=== PATIENT | male | born 1965 | race Caucasian/White ===

== ENCOUNTER 2025-03-11 20:22 | Inpatient (IN) | payer OTHER, SELFPAY ==
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
[2025-03-11 23:43] VITALS: BMI 36.8
--- NOTE | 2025-03-12 04:57 | PC.ADMIT ---
Howard Malagon is a 59 year old male admitted to [facility] from [facility] on a diagnosis of schizophrenia and presenting with increased AH and SI on 03/11/2025.? Pt signed CV.? Patient reports having recently taken a trip out of state with outpatient peer group. Patient did not have his PRN medications during the course of the trip.? Pt contributes this to experiencing disrupted sleep w/nightmares and increased AH and passive SI, with no intent or plan.? Pt reported to have heard a woman?s voice telling him ?You?re a fool? and ?You?d be better off .? Pt felt unsafe and sought inpatient treatment at [facility]. Pt has a history of prior psychiatric hospitalizations.? Tox screen negative.? During admission pt presents with a relaxed affect and anxious mood.? Pt was pleasant and engaged during admission assessment. No noted preoccupation and denied current AH, denies CAH.? Pt reports intermittent back pain 3-4/10, and ?numbness? to right thigh.? Hx of COPD, reporting last time having smoked was 32 years ago.? No medical interventions required. Pt reports hx of sleep apnea, reports having never used a CPAP/BiPAP.? Pt is well established with providers. Seen by hospitalist.? Safety tool completed treatment plan initiated, oriented to unit.
[2025-03-12 07:40] VITALS: BP 124/79; PULSE 60; RESP 20; TEMP 36.4; O2SAT 98
--- NOTE | 2025-03-12 07:54 | HO.PSYADMNOT ---
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 He has a longstanding history of psychiatric problems going back to his 18, mostly with depression and anxiety accompanied by psychotic symptoms with auditory hallucinations, sometimes command in nature. He states that he recently went on a trip to [place] for a [employer] international event. It proved to be quite stressful for him around several delays in his travel plans and missing the 1st day of the meeting. Upon returning he felt more anxious and depressed and was having suicidal ideations with no specific plans. Chronically he does have suicidal ideations of varying degrees and has had 1 attempt at hanging in his 20s. He has had over 12 hospitalizations in the last 1 was 2 years ago. He is followed at a clinic in [place] where he sees his prescriber virtually and his therapist on the phone. She recently has departed and he is awaiting a new assignment. He has been on Abilify 30 mg daily, sertraline 50 mg daily, Wellbutrin XL 300 mg daily, trazodone 100 mg at night with a repeat and Ativan 0.5 mg at night. He denies any side effects. No current or recent history of substance abuse. He denies any homicidal ideations and no history of violence. Past Psychiatric History: Inpatient and outpatient Medical Evaluation Reviewed: Yes (Reviewed) None [facility] Medical History (Updated 03/12/25 @ 08:09 by Luz Castillo MD) Tobacco dependence Strabismus Dentures complicating chewing Chronic back pain COPD (chronic obstructive pulmonary disease) Diverticulosis Obesity Social History: Howard states that both of his parents are . He is 1 of 5 siblings, 4 surviving. He has a college degree. Never and has no children. He currently lives with 1 of his brothers. 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 Substance History: Alcohol and polysubstance in his 20s Trauma History: None known Diagnostics Vital Signs (24Hr): BMI result Body Mass Index 36.8 Meds/Allergies Meds Home Medications ?Medication ?Instructions ?Recorded ?Confirmed ?Type aripiprazole 30 mg tablet 30 mg PO QAM 03/11/25 03/11/25 History bupropion HCl 300 mg 24 hr tablet, 300 mg PO QAM 03/11/25 03/11/25 History extended release hydroxyzine pamoate 50 mg capsule 50 mg PO BID PRN anxiety 03/11/25 03/11/25 History lorazepam 0.5 mg tablet 0.5 mg PO BEDTIME PRN Anxiety 03/11/25 03/11/25 History sertraline 50 mg tablet 50 mg PO QPM depressive disorder 03/11/25 03/11/25 History trazodone 100 mg tablet 200 mg PO BEDTIME PRN Insomnia 03/11/25 03/11/25 History Allergies Allergies Allergy/AdvReac Type Severity Reaction Status Date / Time No Known Allergies Allergy Verified 03/11/25 20:57 Mental Status Exam Mental Status Exam Narrative: Howard was seen the day after his admission. He is alert, oriented and pleasant. Normal speech. Good eye contact. Affect is appropriate and varied. No acute signs of psychosis but admits to auditory hallucinations, sometimes command in nature. No delusions. Cognitively he is grossly intact. He is able to move all limbs. No gait abnormalities. Judgment is intact Assessment & Plan Assessment & Plan (1) Major depress, sev w/ psych: Status: Acute Code(s): F32.3 - Major depressive disorder, single episode, severe with psychotic features Plan Howard meets criteria for IP LOC for safety and stabilization. Current medications were reviewed and maintained with no major changes. Admission workup to be done. Contacts be made with his treaters. He will attend all treatment modalities and continue with his medications. Patient educated on: diagnosis and medication risk/benefits Reason for continued inpatient stay Substantial Risk for: harm to self Statement Statement: I have reviewed the history and physical and performed a pertinent examination on my patient. No changes have occurred unless specified. If the History and Physical was not performed prior to admission, the Hospitalist's service will be consulted for completing the admission physical. Time Spent With Patient Time: Total time managing care of this patient today ____ minutes.
[2025-03-12 09:11] LABS: Hemoglobin A1C 174.4359 umol/L; Total Hemoglobin (HGBA1C) 3941.0776 umol/L
[2025-03-12 09:17] LABS: Alanine Aminotransferase 25 U/L (0-40); Albumin Level 4.5 g/dL (3.5-5.0); Alkaline Phosphatase 75 U/L (39-117); Anion Gap 12 (12-20); Aspartate Amino Transferase 53 U/L (5-37); Blood Urea Nitrogen 20 mg/dL (9-16); Calcium 9.2 mg/dL (8.4-10.2); Carbon Dioxide 26 mmol/L (22-29); Chloride 107 mmol/L (96-108); Cholesterol 164 mg/dL (<200); Creatinine Clr Calc Pharmacy 91.8; Estimated Glomerular Filt Rate > 60; HDL Cholesterol 33 mg/dL (>40); Potassium 4.1 mmol/L (3.3-5.1); Sodium 141 mmol/L (135-145); Total Protein 7.6 g/dL (6.5-8.0); Triglycerides 284 mg/dL (<150)
[2025-03-12] MEDS: ARIPiprazole 30 MG TABLET PO (09:21)
[2025-03-12] MEDS: buPROPion HCl XL 300 MG TAB.ER.24H PO (09:21)
[2025-03-12 09:59] LABS: Free T4 (Free Thyroxine) 0.95 ng/dL (0.71-1.85); Thyroid Stimulating Hormone 1.55 uIU/mL (0.32-4.0)
[2025-03-12 20:00] VITALS: BP 125/89; PULSE 59; RESP 16; TEMP 36.6; O2SAT 99
[2025-03-13 07:35] VITALS: BP 112/70; PULSE 66; RESP 16; TEMP 36.8; O2SAT 98
[2025-03-13] MEDS: buPROPion HCl XL 300 MG TAB.ER.24H PO (08:17)
[2025-03-13] MEDS: ARIPiprazole 30 MG TABLET PO (08:17)
--- NOTE | 2025-03-13 08:36 | HO.PSYCHPN ---
Subjective Subjective Date of Service: 03/13/25 Reason For Visit: Depression Subjective Notes: Conditional Voluntary Interim History: Patient was seen and discussed in rounds today. Records and plans were reviewed. He has been stable and has settled in since admission. He is withdrawn. Medication compliant. Still having some auditory hallucinations but not all the time. Generally feels better. No complaints or side effects. Eating and sleeping well. No changes were made today Review of Systems Review of Systems Yes all other systems are reviewed and are negative Mental Status Exam Mental Status Exam Narrative: He is alert, oriented and pleasant. Normal speech. Good eye contact. Affect is appropriate and varied. No acute signs of psychosis but admits to auditory hallucinations but it is less present since admission., sometimes command in nature. No delusions. Cognitively he is grossly intact. He is able to move all limbs. No gait abnormalities. Judgment is intact Diagnostics Vital Signs (24Hr): Vital Signs - 24 hr 03/12/25 20:00 03/13/25 07:35 Temperature 97.8 F 98.2 F Pulse Rate 59 66 Respiratory Rate 16 16 Blood Pressure 125/89 112/70 Pulse Oximetry 99 98 Oxygen Delivery Method Room Air Room Air BMI result Body Mass Index 36.8 Labs 03/12/25 07:56 Labs: Laboratory Results - last 48 hr 03/12/25 07:56 Sodium 141 Potassium 4.1 Chloride 107 Carbon Dioxide 26 Anion Gap 12 BUN 20 H Creatinine 1.08 Estim Creat Clear Calc 91.8 Estimated GFR > 60 Random Glucose 136 H Estimat Average Glucose 131 Hemoglobin A1c % 6.2 H Calcium 9.2 Total Bilirubin 0.5 AST 53 H ALT 25 Alkaline Phosphatase 75 Total Protein 7.6 Albumin 4.5 Triglycerides 284 H Cholesterol 164 LDL Cholesterol, Calc 75 HDL Cholesterol 33 L TSH 1.55 Free T4 0.95 Medications Medications Current Medications Acetaminophen (Acetaminophen 325 Mg Tablet) 650 mg PO Q6H PRN PRN Reason: Headache/Pain, Scale 1-10 Al Hydroxide/Mg Hydroxide (Magnesium Hydrox/Alum Hydrox 30 Ml Oral.Susp) 30 ml PO Q6H PRN PRN Reason: Heartburn/Nausea Aripiprazole (Aripiprazole 30 Mg Tablet) 30 mg PO DAILY SHAY Last Admin: 03/13/25 08:17 Dose: 30 mg Bupropion HCl (Bupropion Hcl Xl 300 Mg Tab.Er.24h) 300 mg PO DAILY SHAY Last Admin: 03/13/25 08:17 Dose: 300 mg Hydroxyzine HCl (Hydroxyzine Hcl 50 Mg Tablet) 50 mg PO BID PRN PRN Reason: Anxiety Lorazepam (Lorazepam 0.5 Mg Tablet) 0.5 mg PO BEDTIME PRN PRN Reason: Anxiety Last Admin: 03/12/25 21:08 Dose: 0.5 mg Magnesium Hydroxide (Milk Of Magnesia 30 Ml Oral.Susp) 30 ml PO DAILY PRN PRN Reason: Constipation Nicotine (Nicotine 21 Mg Patch.Td24) 21 mg TRANSDERMA DAILY PRN PRN Reason: nicotine craving Nicotine Polacrilex (Nicotine Polacrilex 2 Mg Gum) 2 mg BUCCAL Q2H PRN PRN Reason: Nicotine Cravings Sertraline HCl (Sertraline Hcl 50 Mg Tablet) 50 mg PO DAILY@1800 SHAY Last Admin: 03/12/25 17:47 Dose: 50 mg Trazodone HCl (Trazodone Hcl 100 Mg Tablet) 200 mg PO BEDTIME PRN PRN Reason: Insomnia Last Admin: 03/12/25 21:08 Dose: 200 mg Allergies Allergies Allergy/AdvReac Type Severity Reaction Status Date / Time No Known Allergies Allergy Verified 03/11/25 20:57 Assessment & Plan Assessment & Plan (1) Major depress, sev w/ psych: Status: Acute Code(s): F32.3 - Major depressive disorder, single episode, severe with psychotic features Plan Howard meets criteria for IP LOC for safety and stabilization. Admitted on a CV. Current medications were reviewed and maintained with no major changes. Admission workup to be done. Contacts be made with his treaters. He will attend all treatment modalities and continue with his medications. 03/13: Continue current plans and regimen Reason for continued inpatient stay Substantial Risk for: med/psych decompensation Time Spent With Patient Time: Total time managing care of this patient today ____ minutes.
--- NOTE | 2025-03-13 10:45 | PC.NURSE ---
Spoke to [facility] security [phone] at patient request regarding cell phone. Spoke to Jackie [phone] (from security) who located the cell phone and placed in property room . Patient or patient herbicide service sales representative can fish bait picker through security office when able.
[2025-03-13 20:00] VITALS: BP 141/74; PULSE 63; RESP 18; TEMP 36.4; O2SAT 96
[2025-03-14 07:20] VITALS: BP 120/63; PULSE 68; RESP 16; TEMP 36.4; O2SAT 97
[2025-03-14] MEDS: buPROPion HCl XL 300 MG TAB.ER.24H PO (08:16)
[2025-03-14] MEDS: ARIPiprazole 30 MG TABLET PO (08:16)
--- NOTE | 2025-03-14 14:58 | P.PNPSI_ITS ---
Subjective Subjective Date of Service: 03/14/25 Reason For Visit: Depression Interim History: calm, cooperative, pleasant. occasional SI - the bad voice. feels safe here. sleeping better. ran out of some meds on trip. asking to restart vitamin D and fish oil. no requests otherwise. per staff, slept with PRN ativan and trazodone. slept 8 hours. Mental Status Exam Mental Status Exam Narrative: He is alert, oriented and pleasant. Normal speech. Good eye contact. Affect is appropriate and varied. No acute signs of psychosis but admits to auditory hallucinations but it is less present since admission., sometimes command in nature. No delusions. Cognitively he is grossly intact. He is able to move all limbs. No gait abnormalities. Judgment is intact Diagnostics Vital Signs (24Hr): Vital Signs - 24 hr 03/13/25 20:00 03/14/25 07:20 Temperature 97.5 F 97.6 F Pulse Rate 63 68 Respiratory Rate 18 16 Blood Pressure 141/74 H 120/63 Pulse Oximetry 96 97 Oxygen Delivery Method Room Air Room Air BMI result Body Mass Index 36.8 Labs 03/12/25 07:56 Medications Medications Current Medications Acetaminophen (Acetaminophen 325 Mg Tablet) 650 mg PO Q6H PRN PRN Reason: Headache/Pain, Scale 1-10 Al Hydroxide/Mg Hydroxide (Magnesium Hydrox/Alum Hydrox 30 Ml Oral.Susp) 30 ml PO Q6H PRN PRN Reason: Heartburn/Nausea Aripiprazole (Aripiprazole 30 Mg Tablet) 30 mg PO DAILY [facility] Last Admin: 03/14/25 08:16 Dose: 30 mg Bupropion HCl (Bupropion Hcl Xl 300 Mg Tab.Er.24h) 300 mg PO DAILY [facility] Last Admin: 03/14/25 08:16 Dose: 300 mg Hydroxyzine HCl (Hydroxyzine Hcl 50 Mg Tablet) 50 mg PO BID PRN PRN Reason: Anxiety Lorazepam (Lorazepam 0.5 Mg Tablet) 0.5 mg PO BEDTIME PRN PRN Reason: Anxiety Last Admin: 03/13/25 20:19 Dose: 0.5 mg Magnesium Hydroxide (Milk Of Magnesia 30 Ml Oral.Susp) 30 ml PO DAILY PRN PRN Reason: Constipation Nicotine (Nicotine 21 Mg Patch.Td24) 21 mg TRANSDERMA DAILY PRN PRN Reason: nicotine craving Nicotine Polacrilex (Nicotine Polacrilex 2 Mg Gum) 2 mg BUCCAL Q2H PRN PRN Reason: Nicotine Cravings Sertraline HCl (Sertraline Hcl 50 Mg Tablet) 50 mg PO DAILY@1800 [facility] Last Admin: 03/13/25 17:05 Dose: 50 mg Trazodone HCl (Trazodone Hcl 100 Mg Tablet) 100 mg PO BEDTIME PRN PRN Reason: Insomnia Trazodone HCl (Trazodone Hcl 100 Mg Tablet) 100 mg PO BEDTIME [facility] Vitamin D (Cholecalciferol (Vitamin D3) 25 Mcg Tablet) 50 mcg PO DAILY [facility] Last Admin: 03/14/25 13:05 Dose: 50 mcg Allergies Allergies Allergy/AdvReac Type Severity Reaction Status Date / Time No Known Allergies Allergy Verified 03/11/25 20:57 Assessment & Plan Assessment & Plan (1) Major depress, sev w/ psych: Status: Acute Code(s): F32.3 - Major depressive disorder, single episode, severe with psychotic features Plan Howard meets criteria for IP LOC for safety and stabilization. Admitted on a CV. Current medications were reviewed and maintained with no major changes. Admission workup to be done. Contacts be made with his treaters. He will attend all treatment modalities and continue with his medications. 03/13: Continue current plans and regimen 03/14: feeling improved. occasional SI. feeling safe here. sleeping well. continue current mgmt. Reason for continued inpatient stay Substantial Risk for: harm to self and inability to function Time Spent With Patient Time: Total time managing care of this patient today __25__ minutes.
[2025-03-14 20:00] VITALS: BP 114/75; PULSE 74; RESP 18
[2025-03-15 07:49] VITALS: BP 126/61; PULSE 71; RESP 16; TEMP 36.4; O2SAT 99
[2025-03-15] MEDS: ARIPiprazole 30 MG TABLET PO (08:20)
[2025-03-15] MEDS: buPROPion HCl XL 300 MG TAB.ER.24H PO (08:20)
[2025-03-15] MEDS: Milk of Magnesia 30 ML ORAL.SUSP PO (19:16)
[2025-03-15 20:00] VITALS: BP 135/72; PULSE 81; RESP 16; TEMP 36.4; O2SAT 97
--- NOTE | 2025-03-15 22:17 | P.PNPSI_ITS ---
Subjective Subjective Date of Service: 03/15/25 Reason For Visit: Depression Subjective Notes: Conditional Voluntary Healthcare Proxy: No Guardianship: No Medical Problems Affecting Mental Status: No Interim History: Medical record and nursing notes reviewed; case discussed during rounds with team/nursing staff, and met with patient for supportive therapy/psychoeducation, as well as medication management. Patient slept for 7 hours, was medication compliant, denies side effects. Mood is better since sleep also improving. Reports no suicidal thoughts since Friday. He and do experience voices but they are benign today. Reports sometimes get worse which make him suicide. Reports anxiety is 6/10 same with depression. He agrees to getting sertraline increased up to 100mg. He is visible, social, attended groups. Medication Compliance: Yes Side effects from medications: No Attending Groups: Yes Review of Systems Acute medical concerns: No Medical Review of Systems: unchanged Review of Systems Review of Systems Constitutional: Denies fatigue and Denies fever(s) Cardiovascular: Denies chest pain and Denies dyspnea Respiratory: Denies dyspnea Gastrointestinal: Denies abdominal pain Psychiatric: denies suicidal ideation Endocrine: Denies fatigue Yes all other systems are reviewed and are negative Mental Status Exam Mental Status Exam Narrative: He is alert, oriented and pleasant. Normal speech. Good eye contact. Affect is appropriate and varied. No acute signs of psychosis but admits to auditory hallucinations they are benign but it is less present since admission., sometimes command in nature. No delusions. Cognitively he is grossly intact. He is able to move all limbs. No gait abnormalities. Judgment is intact. No SI/SIB/HI/CAH or VH. Diagnostics Vital Signs (24Hr): Vital Signs - 24 hr 03/15/25 07:49 Temperature 97.5 F Pulse Rate 71 Respiratory Rate 16 Blood Pressure 126/61 Pulse Oximetry 99 Oxygen Delivery Method Room Air BMI result Body Mass Index 36.8 Labs 03/12/25 07:56 Medications Medications Current Medications Acetaminophen (Acetaminophen 325 Mg Tablet) 650 mg PO Q6H PRN PRN Reason: Headache/Pain, Scale 1-10 Al Hydroxide/Mg Hydroxide (Magnesium Hydrox/Alum Hydrox 30 Ml Oral.Susp) 30 ml PO Q6H PRN PRN Reason: Heartburn/Nausea Aripiprazole (Aripiprazole 30 Mg Tablet) 30 mg PO DAILY [facility] Last Admin: 03/15/25 08:20 Dose: 30 mg Bupropion HCl (Bupropion Hcl Xl 300 Mg Tab.Er.24h) 300 mg PO DAILY [facility] Last Admin: 03/15/25 08:20 Dose: 300 mg Hydroxyzine HCl (Hydroxyzine Hcl 50 Mg Tablet) 50 mg PO BID PRN PRN Reason: Anxiety Lorazepam (Lorazepam 0.5 Mg Tablet) 0.5 mg PO BEDTIME PRN PRN Reason: Anxiety Last Admin: 03/15/25 20:40 Dose: 0.5 mg Magnesium Hydroxide (Milk Of Magnesia 30 Ml Oral.Susp) 30 ml PO DAILY PRN PRN Reason: Constipation Last Admin: 03/15/25 19:16 Dose: 30 ml Nicotine (Nicotine 21 Mg Patch.Td24) 21 mg TRANSDERMA DAILY PRN PRN Reason: nicotine craving Nicotine Polacrilex (Nicotine Polacrilex 2 Mg Gum) 2 mg BUCCAL Q2H PRN PRN Reason: Nicotine Cravings Sertraline HCl (Sertraline Hcl 100 Mg Tablet) 100 mg PO DAILY@1800 [facility] Last Admin: 03/15/25 16:55 Dose: 100 mg Trazodone HCl (Trazodone Hcl 100 Mg Tablet) 100 mg PO BEDTIME PRN PRN Reason: Insomnia Last Admin: 03/15/25 20:40 Dose: 100 mg Trazodone HCl (Trazodone Hcl 100 Mg Tablet) 100 mg PO BEDTIME [facility] Last Admin: 03/15/25 20:40 Dose: 100 mg Vitamin D (Cholecalciferol (Vitamin D3) 25 Mcg Tablet) 50 mcg PO DAILY [facility] Last Admin: 03/15/25 08:20 Dose: 50 mcg Allergies Allergies Allergy/AdvReac Type Severity Reaction Status Date / Time No Known Allergies Allergy Verified 03/11/25 20:57 Assessment & Plan Assessment & Plan (1) Major depress, sev w/ psych: Status: Acute Code(s): F32.3 - Major depressive disorder, single episode, severe with psychotic features Plan Howard meets criteria for IP LOC for safety and stabilization. Admitted on a CV. Current medications were reviewed and maintained with no major changes. Admission workup to be done. Contacts be made with his treaters. He will attend all treatment modalities and continue with his medications. 03/13: Continue current plans and regimen 03/14: feeling improved. occasional SI. feeling safe here. sleeping well. continue current mgmt. 08/12/25: Improve in sleep and mood, out of 10, anxiety and depression is at 6/10. Voices has been reduced, they are benign today. No command hallucination. No visual hallucination but reports voices. Visible, attempted to selected groups, appropriate. No behavior management. We will continue to monitor for sleep and safety concern. Increase sertraline from 50 to 100 mg daily at 18:00 Patient educated on: diagnosis, medication risk/benefits and therapeutic strategies Informed Consent: understands Reason for continued inpatient stay Substantial Risk for: med/psych decompensation Time Spent With Patient Time: Total time managing care of this patient today ____ minutes.
[2025-03-16 07:44] VITALS: BP 121/58; PULSE 71; RESP 18; TEMP 36.4; O2SAT 96
[2025-03-16] MEDS: ARIPiprazole 30 MG TABLET PO (08:24)
[2025-03-16] MEDS: buPROPion HCl XL 300 MG TAB.ER.24H PO (08:24)
--- NOTE | 2025-03-16 15:39 | P.PNPSI_ITS ---
Subjective Subjective Date of Service: 03/16/25 Reason For Visit: Depression Subjective Notes: Conditional Voluntary Healthcare Proxy: No Guardianship: No Medical Problems Affecting Mental Status: No Interim History: Medical record and nursing notes reviewed; case discussed during rounds with team/nursing staff, and met with patient for supportive therapy/psychoeducation, as well as medication management. Patient slept, for 8 hours, was up a couple times. Reports not that great compared to the night before. Was medication compliant, denies side effects, denies suicidal thoughts, reports voices but no bed voices . The voices talking about my life and things in the past . Anxiety a 5-6/10, and depression a 3/10. Patient is receptive to the medication change. We will schedule trazodone 200 at bedtime and change scheduled time for Zoloft to the morning instead of 1800 which could be affected his sleep. Taking Zoloft in the morning at home. Medication Compliance: Yes Side effects from medications: No Attending Groups: Yes Review of Systems Acute medical concerns: No Medical Review of Systems: unchanged Review of Systems Review of Systems Constitutional: Denies fatigue and Denies fever(s) Cardiovascular: Denies chest pain and Denies dyspnea Respiratory: Denies dyspnea Gastrointestinal: Denies abdominal pain Psychiatric: denies suicidal ideation Endocrine: Denies fatigue Yes all other systems are reviewed and are negative Mental Status Exam Mental Status Exam Narrative: He is alert, oriented and pleasant. Normal speech. Good eye contact. Affect is appropriate and varied. No acute signs of psychosis but admits to auditory hallucinations not bad voices which is improving.No delusions. Cognitively he is grossly intact. He is able to move all limbs. No gait abnormalities. Judgment is intact. No SI/SIB/HI/CAH or VH. Diagnostics Vital Signs (24Hr): Vital Signs - 24 hr 03/15/25 20:00 03/16/25 07:44 Temperature 97.6 F 97.5 F Pulse Rate 81 71 Respiratory Rate 16 18 Blood Pressure 135/72 121/58 L Pulse Oximetry 97 96 Oxygen Delivery Method Room Air Room Air BMI result Body Mass Index 36.8 Labs 03/12/25 07:56 Medications Medications Current Medications Acetaminophen (Acetaminophen 325 Mg Tablet) 650 mg PO Q6H PRN PRN Reason: Headache/Pain, Scale 1-10 Al Hydroxide/Mg Hydroxide (Magnesium Hydrox/Alum Hydrox 30 Ml Oral.Susp) 30 ml PO Q6H PRN PRN Reason: Heartburn/Nausea Aripiprazole (Aripiprazole 30 Mg Tablet) 30 mg PO DAILY [facility] Last Admin: 03/16/25 08:24 Dose: 30 mg Bupropion HCl (Bupropion Hcl Xl 300 Mg Tab.Er.24h) 300 mg PO DAILY [facility] Last Admin: 03/16/25 08:24 Dose: 300 mg Hydroxyzine HCl (Hydroxyzine Hcl 50 Mg Tablet) 50 mg PO BID PRN PRN Reason: Anxiety Lorazepam (Lorazepam 0.5 Mg Tablet) 0.5 mg PO BEDTIME PRN PRN Reason: Anxiety Last Admin: 03/15/25 20:40 Dose: 0.5 mg Magnesium Hydroxide (Milk Of Magnesia 30 Ml Oral.Susp) 30 ml PO DAILY PRN PRN Reason: Constipation Last Admin: 03/15/25 19:16 Dose: 30 ml Nicotine (Nicotine 21 Mg Patch.Td24) 21 mg TRANSDERMA DAILY PRN PRN Reason: nicotine craving Nicotine Polacrilex (Nicotine Polacrilex 2 Mg Gum) 2 mg BUCCAL Q2H PRN PRN Reason: Nicotine Cravings Sertraline HCl (Sertraline Hcl 100 Mg Tablet) 100 mg PO DAILY [facility] Last Admin: 03/16/25 10:42 Dose: 100 mg Trazodone HCl (Trazodone Hcl 100 Mg Tablet) 200 mg PO BEDTIME [facility] Vitamin D (Cholecalciferol (Vitamin D3) 25 Mcg Tablet) 50 mcg PO DAILY [facility] Last Admin: 03/16/25 08:24 Dose: 50 mcg Allergies Allergies Allergy/AdvReac Type Severity Reaction Status Date / Time No Known Allergies Allergy Verified 03/11/25 20:57 Assessment & Plan Assessment & Plan (1) Major depress, sev w/ psych: Status: Acute Code(s): F32.3 - Major depressive disorder, single episode, severe with psychotic features Plan Howard meets criteria for IP LOC for safety and stabilization. Admitted on a CV. Current medications were reviewed and maintained with no major changes. Admission workup to be done. Contacts be made with his treaters. He will attend all treatment modalities and continue with his medications. 03/13: Continue current plans and regimen 03/14: feeling improved. occasional SI. feeling safe here. sleeping well. continue current mgmt. 03/15/25: Improve in sleep and mood, out of 10, anxiety and depression is at 6/10. Voices has been reduced, they are benign today. No command hallucination. No visual hallucination but reports voices. Visible, attempted to selected groups, appropriate. No behavior management. We will continue to monitor for sleep and safety concern. Increase sertraline from 50 to 100 mg daily at 18:00 03/16/25: Patient slept, for 8 hours, was up a couple times. Reports not that great compared to the night before. Was medication compliant, denies side effects, denies suicidal thoughts, reports voices but no bed voices . The voices talking about my life and things in the past . Anxiety a 5-6/10, and depression a 3/10. Patient is receptive to the medication change. We will schedule trazodone 200 at bedtime and change scheduled time for Zoloft to the morning instead of 1800 which could be affected his sleep. Taking Zoloft in the morning at home. Patient educated on: diagnosis, medication risk/benefits and therapeutic strategies Informed Consent: understands Reason for continued inpatient stay Substantial Risk for: med/psych decompensation Time Spent With Patient Time: Total time managing care of this patient today ____ minutes.
[2025-03-16 20:00] VITALS: BP 116/69; PULSE 70; RESP 16; TEMP 36.4; O2SAT 95
[2025-03-17 07:00] VITALS: BMI 37.2
[2025-03-17 07:44] VITALS: BP 109/56; PULSE 60; RESP 16; TEMP 36.4; O2SAT 97
[2025-03-17] MEDS: buPROPion HCl XL 300 MG TAB.ER.24H PO (08:47)
[2025-03-17] MEDS: ARIPiprazole 30 MG TABLET PO (08:47)
[2025-03-17 20:00] VITALS: BP 131/83; PULSE 69; RESP 18; TEMP 36.8; O2SAT 96
--- NOTE | 2025-03-17 21:37 | P.PNPSI_ITS ---
Subjective Subjective Date of Service: 03/17/25 Reason For Visit: Depression Subjective Notes: Conditional Voluntary Healthcare Proxy: No Guardianship: No Medical Problems Affecting Mental Status: No Interim History: Medical record and nursing notes reviewed; case discussed during rounds with team/nursing staff, and met with patient for supportive therapy/psychoeducation, as well as medication management. Patient slept for 8 hours, medication compliance, denies side effects. However reports he feel groggy which could be from trazodone that was increased yesterday. Denies other safety concerns, reports normal voices, the voices has been less severe, normal talking conversation kind of voices. Anxiety and depression has been going down to 3-5/10 appetite has been good. He appears to be tired. We will continue to monitor for grogginess from trazodone. He is happy to be discharged tomorrow. Reported that brothers working so he can only pick him up after 13:30. Medication Compliance: Yes Side effects from medications: Yes (Groggy) Attending Groups: Yes Review of Systems Acute medical concerns: No Medical Review of Systems: unchanged Review of Systems Review of Systems Constitutional: Denies fatigue and Denies fever(s) Cardiovascular: Denies chest pain and Denies dyspnea Respiratory: Denies dyspnea Gastrointestinal: Denies abdominal pain Psychiatric: denies suicidal ideation Endocrine: Denies fatigue Yes all other systems are reviewed and are negative Mental Status Exam Mental Status Exam Narrative: He is alert, oriented and pleasant. Normal speech. Good eye contact. Affect is appropriate and varied. No acute signs of psychosis but admits to auditory hallucinations normal conversations/talking which is continue to improve.No delusions. Cognitively he is grossly intact. He is able to move all limbs. No gait abnormalities. Judgment is intact. No SI/SIB/HI/CAH or VH. Diagnostics Vital Signs (24Hr): Vital Signs - 24 hr 03/17/25 07:44 03/17/25 20:00 Temperature 97.5 F 98.2 F Pulse Rate 60 69 Respiratory Rate 16 18 Blood Pressure 109/56 L 131/83 Pulse Oximetry 97 96 Oxygen Delivery Method Room Air Room Air BMI result Body Mass Index 37.2 Labs 03/12/25 07:56 Medications Medications Current Medications Acetaminophen (Acetaminophen 325 Mg Tablet) 650 mg PO Q6H PRN PRN Reason: Headache/Pain, Scale 1-10 Al Hydroxide/Mg Hydroxide (Magnesium Hydrox/Alum Hydrox 30 Ml Oral.Susp) 30 ml PO Q6H PRN PRN Reason: Heartburn/Nausea Aripiprazole (Aripiprazole 30 Mg Tablet) 30 mg PO DAILY [facility] Last Admin: 03/17/25 08:47 Dose: 30 mg Bupropion HCl (Bupropion Hcl Xl 300 Mg Tab.Er.24h) 300 mg PO DAILY [facility] Last Admin: 03/17/25 08:47 Dose: 300 mg Hydroxyzine HCl (Hydroxyzine Hcl 50 Mg Tablet) 50 mg PO BID PRN PRN Reason: Anxiety Lorazepam (Lorazepam 0.5 Mg Tablet) 0.5 mg PO BEDTIME PRN PRN Reason: Anxiety Last Admin: 03/17/25 20:27 Dose: 0.5 mg Magnesium Hydroxide (Milk Of Magnesia 30 Ml Oral.Susp) 30 ml PO DAILY PRN PRN Reason: Constipation Last Admin: 03/15/25 19:16 Dose: 30 ml Nicotine (Nicotine 21 Mg Patch.Td24) 21 mg TRANSDERMA DAILY PRN PRN Reason: nicotine craving Nicotine Polacrilex (Nicotine Polacrilex 2 Mg Gum) 2 mg BUCCAL Q2H PRN PRN Reason: Nicotine Cravings Sertraline HCl (Sertraline Hcl 100 Mg Tablet) 100 mg PO DAILY [facility] Last Admin: 03/17/25 08:47 Dose: 100 mg Trazodone HCl (Trazodone Hcl 100 Mg Tablet) 200 mg PO BEDTIME [facility] Last Admin: 03/17/25 20:27 Dose: 200 mg Vitamin D (Cholecalciferol (Vitamin D3) 25 Mcg Tablet) 50 mcg PO DAILY [facility] Last Admin: 03/17/25 08:47 Dose: 50 mcg Allergies Allergies Allergy/AdvReac Type Severity Reaction Status Date / Time No Known Allergies Allergy Verified 03/11/25 20:57 Assessment & Plan Assessment & Plan (1) Major depress, sev w/ psych: Status: Acute Code(s): F32.3 - Major depressive disorder, single episode, severe with psychotic features Plan [facility] meets criteria for LOC for safety and stabilization. Admitted on a CV. Current medications were reviewed and maintained with no major changes. Admission workup to be done. Contacts be made with his treaters. He will attend all treatment modalities and continue with his medications. 03/13: Continue current plans and regimen 03/14: feeling improved. occasional SI. feeling safe here. sleeping well. continue current mgmt. 03/15/25: Improve in sleep and mood, out of 10, anxiety and depression is at 6/10. Voices has been reduced, they are benign today. No command hallucination. No visual hallucination but reports voices. Visible, attempted to selected groups, appropriate. No behavior management. We will continue to monitor for sleep and safety concern. Increase sertraline from 50 to 100 mg daily at 18:00 03/16/25: Patient slept, for 8 hours, was up a couple times. Reports not that great compared to the night before. Was medication compliant, denies side effects, denies suicidal thoughts, reports voices but no bed voices . The voices talking about my life and things in the past . Anxiety a 5-6/10, and depression a 3/10. Patient is receptive to the medication change. We will schedule trazodone 200 at bedtime and change scheduled time for Zoloft to the morning instead of 1800 which could be affected his sleep. Taking Zoloft in the morning at home. 03/17/25: Patient slept for 8 hours, medication compliance, denies side effects. However reports he feel groggy which could be from trazodone that was increased yesterday. Denies other safety concerns, reports normal voices, the voices has been less severe, normal talking conversation kind of voices. Anxiety and depression has been going down to 3-5/10 appetite has been good. He appears to be tired. We will continue to monitor for grogginess from trazodone. He is happy to be discharged tomorrow. Reported that brothers working so he can only pick him up after 13:30. Working on sending medication to preferred pharmacy. back up worker continued to work on discharge aftercare appointments Patient educated on: diagnosis, medication risk/benefits and therapeutic strategies Informed Consent: understands Reason for continued inpatient stay Substantial Risk for: med/psych decompensation Time Spent With Patient Time: Total time managing care of this patient today ____ minutes.
[2025-03-18 07:40] VITALS: BP 134/80; PULSE 75; RESP 20; TEMP 36.4; O2SAT 98
[2025-03-18] MEDS: ARIPiprazole 30 MG TABLET PO (08:21)
[2025-03-18] MEDS: buPROPion HCl XL 300 MG TAB.ER.24H PO (08:21)
--- NOTE | 2025-03-18 09:36 | P.DS_ITS ---
DS: Providers Provider Date of Service: 03/18/25 Date of admission: 03/11/25 20:22 Date of discharge: 03/18/25 Primary care physician: Unknown Physician Attending physician on admission: Stephen Cronin Consults: 03/11/25 20:57 Consult to Hospitalist Routine Comment: Consulting Provider: [facility] Hospitalists Reason For Exam: New external admit-H&P Discharging clinician: Valerie Bill DS: Diagnosis Discharge Diagnosis (1) Major depress, sev w/ psych: Status: Acute DS: Medications Discharge Medications Home Medications: Previous Rx's ?Medication ?Instructions ?Recorded aripiprazole 30 mg tablet 30 mg PO QAM psychosis/voice s #30 03/17/25 tabs bupropion HCl 300 mg 24 hr tablet, 300 mg PO QAM Depre ssion #30 tabs 03/17/25 extended release cholecalciferol (vitamin D3) 25 50 mcg (2 x 25 mcg (1, 000 unit)) 03/17/25 mcg (1,000 unit) tablet PO DAILY supplement #60 tab s hydroxyzine pamoate 50 mg capsule 50 mg PO BID PRN anx iety #60 caps 03/17/25 lorazepam 0.5 mg tablet 0.5 mg PO BEDTIME PRN Anxiet y #14 03/17/25 tabs sertraline 50 mg tablet 100 mg (2 x 50 mg) PO DAILY 03/17/25 depressive disorder #60 tabs trazodone 100 mg tablet 200 mg (2 x 100 mg) PO BEDTI ME PRN 03/17/25 Insomnia #30 tabs Mental Status Exam Mental Status Exam Narrative: Patient presents well-groomed, casually dressed. Affect is euthymic with full range. Speech is clear and coherent. Thought process is linear and logical. Thought content is appropriate and relevant. Patient denies suicidal or homicidal ideation intent or plan. No overt psychotic symptoms elicited. Insight is good. Judgment is good. Data Data Completed and Pending Completed studies during hospitalization [Text1]: 03/12/25 07:56 Sodium 141 Potassium 4.1 Chloride 107 Carbon Dioxide 26 Anion Gap 12 BUN 20 H Creatinine 1.08 Estim Creat Clear Calc 91.8 Estimated GFR > 60 Random Glucose 136 H Estimat Average Glucose 131 Hemoglobin A1c % 6.2 H Calcium 9.2 Total Bilirubin 0.5 AST 53 H ALT 25 Alkaline Phosphatase 75 Total Protein 7.6 Albumin 4.5 Triglycerides 284 H Cholesterol 164 LDL Cholesterol, Calc 75 HDL Cholesterol 33 L TSH 1.55 Free T4 0.95 DS: Summary Hospital Course Hospital Course: HPI: Per admitting provider note: Howard is a 59-year-old white, single, 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 He has a longstanding history of psychiatric problems going back to his 18, mostly with depression and anxiety accompanied by psychotic symptoms with auditory hallucinations, sometimes command in nature. He states that he recently went on a trip to [place] for a [employer] international event. It proved to be quite stressful for him around several delays in his travel plans and missing the 1st day of the meeting. Upon returning he felt more anxious and depressed and was having suicidal ideations with no specific plans. Chronically he does have suicidal ideations of varying degrees and has had 1 attempt at hanging in his 20s. He has had over 12 hospitalizations in the last 1 was 2 years ago. He is followed at a clinic in [place] where he sees his prescriber virtually and his therapist on the phone. She recently has departed and he is awaiting a new assignment. He has been on Abilify 30 mg daily, sertraline 50 mg daily, Wellbutrin XL 300 mg daily, trazodone 100 mg at night with a repeat and Ativan 0.5 mg at night. He denies any side effects. No current or recent history of substance abuse. He denies any homicidal ideations and no history of violence. Past Psychiatric History: Inpatient and outpatient Plan Howard meets criteria for IP LOC for safety and stabilization. Admitted on a C V. Current medications were reviewed and maintained with no major changes. Admission workup to be done. Contacts be made with his treaters. He will attend all treatment modalities and continue with his medications. 03/13: Continue current plans and regimen. 03/14: feeling improved. occasional SI. feeling safe here. sleeping well. continue current mgmt. 03/15/25: Improve in sleep and mood, 7 out of 10, anxiety and depression is at 6/10. Voices has been reduced, they are benign today. No command hallucination. No visual hallucination but reports voices. Visible, attempted to selected groups, appropriate. No behavior management. We will continue to monitor for sleep and safety concern. Increase sertraline from 50 to 100 mg daily at 18:00 03/16/25: Patient slept for 8 hours, was up a couple times. Reports not that great compared to the night before. Was medication compliant, denies side effects, denies suicidal thoughts, reports voices but no bed voices . The voices talking about my life and things in the past . Anxiety a 5-6/10, and depression a 3/10. Patient is receptive to the medication change. We will schedule trazodone 200 at bedtime and change scheduled time for Zoloft to the morning instead of 1800 which could be affected his sleep. Taking Zoloft in the morning at home. 03/17/25: Patient slept for 8 hours, medication compliance, denies side effects. However reports he feel groggy which could be from trazodone that was increased yesterday. Denies other safety concerns, reports normal voices, the voices has been less severe, normal talking conversation kind of voices. Anxiety and depression has been going down to 3-5/10 appetite has been good. He appears to be tired. We will continue to monitor for grogginess from trazodone. He is happy to be discharged tomorrow. Reported that brothers working so he can only pick him up after 13:30. Working on sending medication to preferred pharmacy. [employer] worker continued to work on discharge aftercare appointments 03/18/25: patient is ready for discharge, states that he feels safe returning home. Brother to pick him up between 12-1300. Visible, attended groups, report no problems with sleep or appetite. Denies safety concerns. Voices are there but controllable and no CAH. No SI since last Friday. Medication sent to preferred pharmacy. Patient is aware of FLU appointments. Time spent discussing smoking cessation with patient: 3 to 10 minutes Status at Discharge Cognitive/behavioral status at discharge: CONDITION ON DISCHARGE: CURRENT STATUS IT RELATES TO ADMISSION CRITERIA: Stable, improved. Improvements in depression, anxiety, and suicidal ideation. Improvements in sleep, energy, and appetite. and controllable voices which has been slow down at minimal, no command in nature. No paranoia/delusional thought. Functional status at discharge: independent ambulation Overall status at discharge: patient is back to baseline Time Spent with Patient Time attestation: Total time managing care of this patient today ____ minutes. Time spent: Greater than 30 minutes Discharge Plan Discharge Anticipated Discharge Date/Time: 03/18/25 13:30 Patient Disposition: Home, Self-Care Discharge Diagnosis: MDD with psychotic features, COPD Referrals: Rena Valle ([facility]) [Other] - 04/01/25 8:30 am Referral Note: in person Ruma Deal FNP [Nurse Practitioner, Family Practice] - 03/21/25 3:00 pm Referral Note: Appointment is with Dr Gauthier Discharge Medications: New cholecalciferol (vitamin D3) 25 mcg (1,000 unit) Tablet 50 mcg PO DAILY Qty: 60 0RF Continued hydroxyzine pamoate 50 mg capsule 50 mg PO BID PRN (Reason: anxiety) Qty: 60 0RF lorazepam 0.5 mg tablet 0.5 mg PO BEDTIME PRN (Reason: Anxiety) Qty: 14 0RF trazodone 100 mg tablet 200 mg PO BEDTIME PRN (Reason: Insomnia) Qty: 30 0RF aripiprazole 30 mg tablet 30 mg PO QAM Qty: 30 0RF bupropion HCl 300 mg tablet extended release 24 hr 300 mg PO QAM Qty: 30 0RF Changed sertraline 50 mg tablet 100 mg PO DAILY Qty: 60 0RF Discharge Orders: Discharge Order (Routine); Ordered 03/18/25 Ordered By: Valerie Bill Diet: Regular diet Activity on Discharge: As tolerated Stand Alone Forms: Patient Portal Discharge page, Community Support Print Language: Colombian Care Plan Goals: Maintain mood and safe behaviors Take medications as prescribed Continue to pursue sobriety Practice coping skills Continue with outpatient providers and reach out to them as needed Health Concerns: Mood stability and behaviors Sobriety Plan of Treatment: Follow up with your PCP, psychiatric provider and other outpatient providers regarding above concerns Take medications as prescribed Assessment: Assessment: Risk assessment at time of discharge: Patient was interviewed prior to discharge and found to be fully oriented and without any SI or HI. Patient has improved insight and judgment and wants to continue treatment. Patient is not in imminent risk of harm to self or others and has a safety plan that includes presenting to the closest ER or calling 911 if feeling unsafe. Patient has been observed closely by nursing and unit staff throughout admission; patient has not engaged in any behaviors that suggest dangerousness to self or others and has demonstrated appropriate behaviors and impulse control Discharge Date/Time: 03/18/25 12:35
== END 2025-03-18 12:35 | disposition home or self-care (01) | DRG 885 ==
PROVIDERS: Nurse Practitioner Psychiatric/Mental Health; Admitting Provider Psychiatry & Neurology Psychiatry; Visit Provider Psychiatry & Neurology Psychiatry
DX: F32.3 Major depressive disorder, single episode, severe with psychotic features (principal); R45.851 Suicidal ideations; J44.9 Chronic obstructive pulmonary disease, unspecified; M54.9 Dorsalgia, unspecified; E66.9 Obesity, unspecified; H50.9 Unspecified strabismus; G89.29 Other chronic pain; Z87.891 Personal history of nicotine dependence; Z79.899 Other long term (current) drug therapy
CPT/HCPCS: 36415; 80053; 80061; 83036; 84439; 84443

== ENCOUNTER → 2025-03-11 20:22 | Outpatient (BNV) | payer OTHER, SELFPAY | PROVIDERS: Admitting Provider Psychiatry & Neurology Psychiatry; Visit Provider Psychiatry & Neurology Psychiatry | DX: F32.3 Major depressive disorder, single episode, severe with psychotic features (principal) | CPT/HCPCS: 90792 ==

== ENCOUNTER → 2025-03-11 20:22 | Outpatient (BNV) | payer OTHER, SELFPAY | PROVIDERS: Admitting Provider Psychiatry & Neurology Psychiatry; Visit Provider Nurse Practitioner Family | DX: J44.9 Chronic obstructive pulmonary disease, unspecified (principal) | CPT/HCPCS: 99223 ==